=== PATIENT | female | born 1955 | race Caucasian/White ===

== ENCOUNTER 2016-08-05 09:49 | Inpatient (IN) | payer BC ==
[~2016-08-05 09:49] MED LIST: CLARITIN10 M6 PO; PROBIOTIC1 EA10 PO; VITAMIN D35000 UNI3 PO; [UNRECOGNIZED DRUG - OTHER] PO
[2016-08-06 06:11] LABS: ANION GAP 11 mmol/L (0-20); BLOOD UREA NITROGEN 13 mg/dl (6-24); CALCIUM 8.1 mg/dl (8.5-10.5); CARBON DIOXIDE-VENOUS 28 mmol/L (22-32); CHLORIDE 108 mmol/l (96-110); CREATININE 0.76 mg/dl (0.50-1.10); GLUCOSE 105 mg/dL (70-110); POTASSIUM 4.4 mmol/L (3.7-5.1); SODIUM 143 mmol/L (135-145); eGFR VALUE FOR BLACK >90 mL/Min
[2016-08-06] MEDS ORDERED: ROBAXIN-750750 M1 PO (16:40)
[2016-08-06] MEDS ORDERED: HYDROCODON-ACE1 EA16 PO (16:43)
[2016-08-06] MEDS ORDERED: FLEXERIL PO (16:45)
[2016-08-06] MEDS ORDERED: SENOKOT-S TABL1 EACH PO (16:46)
[2016-08-06] MEDS ORDERED: TYLENOL325 M2 PO (16:47)
== END 2016-08-06 17:25 | DRG 460 ==
LOC: SHSB 09:49 → PACU 14:47 → 5EC 15:35
PROVIDERS: ADMIT Neurological Surgery
PROC: 0SG00A1 (ICD-10-PCS; principal; 2016-08-05)
PROC: 0SB20ZZ Excision of Lumbar Vertebral Disc, Open Approach (ICD-10-PCS; 2016-08-05)
DX: M43.16 Spondylolisthesis, lumbar region (principal); M48.06 Spinal stenosis, lumbar region; M54.16 Radiculopathy, lumbar region; R11.0 Nausea
CPT/HCPCS: C1713; G8978-GP-CJ; G8979-GP-CJ; J0690; J2405; J2800